=== PATIENT | male | born 1990 | race Caucasian/White ===

== ENCOUNTER 2018-09-30 02:34 | Inpatient (IN) ==
[2018-09-30] MEDS ORDERED: ONDANSETRON 4 MG/2 ML VIAL ONE ×3 (02:46→11:22)
[2018-09-30] MEDS ORDERED: DIPHTHERIA/TETANUS ADULT VACCINE 0.5 ML VIAL IM ONE (02:46)
[2018-09-30] MEDS ORDERED: ONDANSETRON 4 MG/2 ML VIAL IV STA ×2 (02:46→06:35)
[2018-09-30] MEDS ORDERED: HYDROmorphone 2 MG/1 ML VIAL ONE (02:46)
[2018-09-30] MEDS ORDERED: LACTATED RINGERS 1,000 ML IV STA (02:46)
[2018-09-30] MEDS ORDERED: HYDROmorphone 2 MG/1 ML VIAL IV STA ×2 (02:46→03:56)
[2018-09-30 03:51] LABS: Basophils # 0.1 10*3/uL (0.0-0.2); Basophils % 0.2 % (0.0-0.8); Eosinophils % 0.1 % (0.00-10.9); Hematocrit 34.2 VOL% (42.0-52.0); Hemoglobin 11.6 GM/DL (14.0-18.0); Immature Granulocytes % 1.4 %; Lymphocytes % 5.6 % (21.2-54.2); Mean Corpuscular HGB Conc 33.9 GM/DL (32-36); Mean Corpuscular Hemoglobin 30 PG (27-34); Mean Corpuscular Volume 89.1 FL (87-102); Mean Platelet Volume 9.1 FL (9.6-12.0); Monocytes # 2.4 10*3/uL (0.11-0.8); Monocytes % 6.7 % (1.7-12.7); Neutrophils # 30.8 10*3/uL (1.4-7.4); Platelet Count 253 T/CUMM (130-400); Red Blood Count 3.84 MC/CUMM (3.8-5.5); Red Cell Distribution Width 11.9 % (9.3-17.3); White Blood Count 35.9 T/CUMM (4-12)
[2018-09-30 03:59] LABS: Partial Thromboplastin Time 22.9 SECS (0-40)
[2018-09-30 04:14] LABS: Band Neutrophils 10 % (0-10); Lymphocytes 6 % (20-55); Metamyelocytes 1 %; Platelet Estimate Normal; Segmented Neutrophils 79 % (50-85); Total Cells Counted 100
[2018-09-30 04:16] LABS: Lactic Acid 3.3 MMOL/L (0.4-2.0)
[2018-09-30 04:17] LABS: Alanine Aminotransferase 74 U/L (16-61); Albumin 3.2 G/DL (3.4-5.0); Alkaline Phosphatase 76 U/L (45-117); Amylase 34 U/L (25-115); Aspartate Amino Transferase 71 U/L (0-37); Bilirubin,Total < 0.39 MG/DL (0.2-1.0); Blood Urea Nitrogen 13 MG/DL (7-18); Calcium 7.8 MG/DL (8.5-10.1); Glucose 113 MG/DL (74-106); Osmolality,Calculated 283.1 MOS/KG (273-304); Potassium 3.8 MMOL/L (3.5-5.1); Sodium 142 MMOL/L (136-145); Total Protein 5.8 G/DL (6.4-8.3)
[2018-09-30] MEDS ORDERED: PIPERACILLIN/TAZOBACTAM 3,375 MG in SODIUM CHLORIDE 0.9% 100 ML IV ONE (05:40)
[2018-09-30 05:59] LABS: Apearance,Urine CLEAR (Clear); Bilirubin,Urine Negative (Negative); Blood, Urine Moderate mg/dL (Negative); Glucose,Urine (UA) 50 mg/dL (Negative); Ketones,Urine Negative (Negative); Nitrite,Urine Negative (Negative); Protein,Urine 30 MG/DL; RBC,Urine 60 /HPF (0-4); Urine Color Straw (Yellow); Urine Specific Gravity 1.038 (1.001-1.035); Urine Urobilinogen < 2.0 EU/DL (0.2-1.0); WBC,Urine 3 /HPF (0-6)
[2018-09-30] MEDS ORDERED: SODIUM CHLORIDE 0.9% 1,000 ML IV STA (06:14)
[2018-09-30 06:19] LABS: Barbiturates Screen,Urine Negative (Negative); Benzodiazepines Screen,Urine Negative (Negative); Cannabinoid Screen,Urine Negative (Negative); Opiate Screen,Urine Positive (Negative); Phencyclidine Screen,Urine Negative (Negative)
[2018-09-30] MEDS ORDERED: ceFAZolin 1,000 MG in SYRINGE 1 EACH IV ONE (07:06)
[2018-09-30 08:01] LABS: Hematocrit 33.7 VOL% (42.0-52.0); Hemoglobin 11.4 GM/DL (14.0-18.0)
[2018-09-30] MEDS ORDERED: BACITRACIN OINT 0.9 GM PACK TOP ONE (08:50)
[2018-09-30] MEDS ORDERED: diphenhydrAMINE CAP 25 MG CAPSULE PO PRN (09:51)
[2018-09-30] MEDS ORDERED: NALOXONE 0.4 MG/ML VIAL IV PRN (09:51)
[2018-09-30 10:13] LABS: Apearance,Urine CLEAR (Clear); Bilirubin,Urine Negative (Negative); Blood, Urine Moderate mg/dL (Negative); Glucose,Urine (UA) 150 mg/dL (Negative); Ketones,Urine Negative (Negative); Mucus,Urine Occasional /LPF (Occasional); Nitrite,Urine Negative (Negative); Protein,Urine Negative; RBC,Urine 14 /HPF (0-4); Urine Color Straw (Yellow); Urine Specific Gravity 1.023 (1.001-1.035); Urine Urobilinogen < 2.0 EU/DL (0.2-1.0); WBC,Urine 1 /HPF (0-6)
[2018-09-30] MEDS ORDERED: MORPHINE PCA 30 MG/30 ML SYRINGE IV ONE (10:24)
[2018-09-30] MEDS: MORPHINE PCA 30 MG/30 ML SYRINGE IV SCH ×2 (10:28→20:53)
[2018-09-30] MEDS ORDERED: ONDANSETRON 4 MG/2 ML VIAL IV PRN (10:34)
[2018-09-30] MEDS: HYDROmorphone 2 MG/1 ML VIAL IV PRN ×5 (10:35→19:34)
[2018-09-30] MEDS ORDERED: PROPOFOL 200 MG/20 ML VIAL IV ONE (11:22)
[2018-09-30] MEDS ORDERED: LACTATED RINGERS 2,000 ML IV ONE (11:23)
[2018-09-30] MEDS ORDERED: SUCCINYLCHOLINE 200 MG/10 ML VIAL ONE (11:23)
[2018-09-30] MEDS ORDERED: SEVOFLURANE 1 UNIT/15 MINUTE INH ONE (11:23)
[2018-09-30] MEDS ORDERED: PHENYLEPHRINE 1 MG/10 ML SYRINGE IV ONE (11:23)
[2018-09-30] MEDS ORDERED: ROCURONIUM 100 MG/10 ML VIAL IV ONE (11:23)
[2018-09-30] MEDS ORDERED: LACTATED RINGERS 1,000 ML IV SCH (11:25)
[2018-09-30] MEDS ORDERED: SODIUM CHLORIDE 0.9% 1,000 ML IV PRN (11:25)
[2018-09-30] MEDS: LACTATED RINGERS 1,000 ML IV SCH ×3 (12:23→20:23)
[2018-09-30] MEDS: ceFAZolin 1,000 MG in SYRINGE 1 EACH IV SCH ×2 (14:06→21:15)
[2018-09-30] MEDS: DOCUSATE SODIUM 100 MG CAPSULE PO SCH (21:15)
[2018-10-01] MEDS ORDERED: ENOXAPARIN 40 MG/0.4 ML SYRINGE SUBCUT SCH (03:51)
[2018-10-01] MEDS: LACTATED RINGERS 1,000 ML IV SCH ×3 (04:20→10:13)
[2018-10-01 04:40] LABS: Basophils % 0.2 % (0.0-0.8); Eosinophils % 0.2 % (0.00-10.9); Hematocrit 23.8 VOL% (42.0-52.0); Immature Granulocytes % 0.5 %; Immature Granulocytes Absolute 0.06 #; Lymphocytes # 2.2 10*3/uL (1.4-4.0); Lymphocytes % 17.1 % (21.2-54.2); Mean Corpuscular HGB Conc 33.6 GM/DL (32-36); Mean Corpuscular Hemoglobin 30 PG (27-34); Mean Corpuscular Volume 89.8 FL (87-102); Monocytes # 1.4 10*3/uL (0.11-0.8); Monocytes % 11.3 % (1.7-12.7); Neutrophils # 9.1 10*3/uL (1.4-7.4); Neutrophils % 70.7 % (38.7-73.9); Platelet Count 176 T/CUMM (130-400); Red Blood Count 2.65 MC/CUMM (3.8-5.5); White Blood Count 12.8 T/CUMM (4-12)
[2018-10-01 05:08] LABS: Calcium 7.4 MG/DL (8.5-10.1); Osmolality,Calculated 275.7 MOS/KG (273-304); Potassium 3.8 MMOL/L (3.5-5.1)
[2018-10-01] MEDS: HYDROmorphone 2 MG/1 ML VIAL IV PRN (08:37)
[2018-10-01] MEDS: DOCUSATE SODIUM 100 MG CAPSULE PO SCH ×2 (08:37→20:12)
[2018-10-01] MEDS ORDERED: ACETAMINOPHEN 325 MG TABLET PO PRN (09:52)
[2018-10-01] MEDS: KETOROLAC 30 MG/1 ML VIAL IV SCH ×3 (10:48→22:05)
[2018-10-01] MEDS: MORPHINE PCA 30 MG/30 ML SYRINGE IV SCH (11:36)
[2018-10-02] MEDS: MORPHINE PCA 30 MG/30 ML SYRINGE IV SCH (00:28)
[2018-10-02] MEDS: KETOROLAC 30 MG/1 ML VIAL IV SCH ×4 (03:36→21:51)
[2018-10-02 04:54] LABS: Basophils % 0.2 % (0.0-0.8); Eosinophils # 0.2 10*3/uL (0.0-0.87); Eosinophils % 2.2 % (0.00-10.9); Hematocrit 19.3 VOL% (42.0-52.0); Hemoglobin 6.5 GM/DL (14.0-18.0); Immature Granulocytes % 0.6 %; Immature Granulocytes Absolute 0.05 #; Lymphocytes % 23.3 % (21.2-54.2); Mean Corpuscular HGB Conc 33.7 GM/DL (32-36); Mean Corpuscular Hemoglobin 30 PG (27-34); Mean Corpuscular Volume 88.5 FL (87-102); Mean Platelet Volume 9.7 FL (9.6-12.0); Monocytes # 0.7 10*3/uL (0.11-0.8); Monocytes % 8.3 % (1.7-12.7); Neutrophils # 5.7 10*3/uL (1.4-7.4); Neutrophils % 65.4 % (38.7-73.9); Platelet Count 137 T/CUMM (130-400); Red Blood Count 2.18 MC/CUMM (3.8-5.5); Red Cell Distribution Width 11.9 % (9.3-17.3); White Blood Count 8.7 T/CUMM (4-12)
[2018-10-02 05:06] LABS: Calcium 7.8 MG/DL (8.5-10.1); Osmolality,Calculated 278.4 MOS/KG (273-304); Potassium 3.5 MMOL/L (3.5-5.1)
[2018-10-02] MEDS ORDERED: SODIUM CHLORIDE 0.9% 1,000 ML IV PRN (06:25)
[2018-10-02] MEDS: DOCUSATE SODIUM 100 MG CAPSULE PO SCH ×2 (09:49→20:02)
[2018-10-02] MEDS: FONDAPARINUX 2.5 MG/0.5 ML SYRINGE SUBCUT SCH ×2 (09:49→09:54)
[2018-10-02] MEDS: ONDANSETRON 4 MG/2 ML VIAL IV PRN (09:52)
[2018-10-02] MEDS: MUPIROCIN 2% OINT 22 GM TUBE TOP SCH (12:30)
[2018-10-02] MEDS ORDERED: BACITRACIN OINT 0.9 GM PACK TOP SCH (12:30)
[2018-10-02] MEDS: HYDROmorphone 2 MG/1 ML VIAL IV PRN (13:48)
[2018-10-02 16:25] LABS: Hematocrit 21.1 VOL% (42.0-52.0); Hemoglobin 7.1 GM/DL (14.0-18.0)
[2018-10-03 04:49] LABS: Basophils % 0.1 % (0.0-0.8); Eosinophils # 0.2 10*3/uL (0.0-0.87); Eosinophils % 2.5 % (0.00-10.9); Hemoglobin 7.3 GM/DL (14.0-18.0); Immature Granulocytes % 0.8 %; Immature Granulocytes Absolute 0.07 #; Lymphocytes # 1.2 10*3/uL (1.4-4.0); Lymphocytes % 14.5 % (21.2-54.2); Mean Corpuscular HGB Conc 33.2 GM/DL (32-36); Mean Corpuscular Hemoglobin 30 PG (27-34); Mean Corpuscular Volume 89.4 FL (87-102); Mean Platelet Volume 9.5 FL (9.6-12.0); Monocytes # 0.6 10*3/uL (0.11-0.8); Monocytes % 6.7 % (1.7-12.7); Neutrophils # 6.5 10*3/uL (1.4-7.4); Neutrophils % 75.4 % (38.7-73.9); Platelet Count 150 T/CUMM (130-400); Red Blood Count 2.46 MC/CUMM (3.8-5.5); Red Cell Distribution Width 12.3 % (9.3-17.3); White Blood Count 8.6 T/CUMM (4-12)
[2018-10-03] MEDS: KETOROLAC 30 MG/1 ML VIAL IV SCH ×4 (05:42→21:38)
[2018-10-03] MEDS: MAGNESIUM HYDROXIDE SUSP 30 ML UDCUP PO PRN ×2 (05:46→17:17)
[2018-10-03] MEDS: DOCUSATE SODIUM 100 MG CAPSULE PO SCH ×2 (08:52→21:37)
[2018-10-03] MEDS: FONDAPARINUX 2.5 MG/0.5 ML SYRINGE SUBCUT SCH (08:52)
[2018-10-03] MEDS: MUPIROCIN 2% OINT 22 GM TUBE TOP SCH (08:52)
[2018-10-03] MEDS: ONDANSETRON 4 MG/2 ML VIAL IV PRN (15:23)
[2018-10-03 19:36] LABS: Hematocrit 26.5 VOL% (42.0-52.0)
[2018-10-03 19:43] LABS: Hemoglobin 9.1 GM/DL (14.0-18.0)
[2018-10-04] MEDS: KETOROLAC 30 MG/1 ML VIAL IV SCH ×4 (05:27→23:12)
[2018-10-04 06:14] LABS: Basophils % 0.2 % (0.0-0.8); Eosinophils # 0.6 10*3/uL (0.0-0.87); Eosinophils % 6.8 % (0.00-10.9); Hemoglobin 8.3 GM/DL (14.0-18.0); Immature Granulocytes % 1.5 %; Immature Granulocytes Absolute 0.12 #; Lymphocytes # 1.8 10*3/uL (1.4-4.0); Lymphocytes % 22.3 % (21.2-54.2); Mean Corpuscular HGB Conc 33.2 GM/DL (32-36); Mean Corpuscular Hemoglobin 30 PG (27-34); Mean Corpuscular Volume 89.6 FL (87-102); Monocytes # 0.7 10*3/uL (0.11-0.8); Monocytes % 8.4 % (1.7-12.7); NRBC # 0.02 10*3/uL; Neutrophils # 4.9 10*3/uL (1.4-7.4); Neutrophils % 60.8 % (38.7-73.9); Platelet Count 186 T/CUMM (130-400); Red Blood Count 2.79 MC/CUMM (3.8-5.5); Red Cell Distribution Width 12.5 % (9.3-17.3); White Blood Count 8.1 T/CUMM (4-12)
[2018-10-04 06:35] LABS: Calcium 8.4 MG/DL (8.5-10.1); Osmolality,Calculated 282.3 MOS/KG (273-304); Potassium 3.9 MMOL/L (3.5-5.1)
[2018-10-04] MEDS: FONDAPARINUX 2.5 MG/0.5 ML SYRINGE SUBCUT SCH (08:59)
[2018-10-04] MEDS: DOCUSATE SODIUM 100 MG CAPSULE PO SCH ×2 (09:58→20:31)
[2018-10-04] MEDS: MUPIROCIN 2% OINT 22 GM TUBE TOP SCH (17:30)
[2018-10-05] MEDS: MAGNESIUM HYDROXIDE SUSP 30 ML UDCUP PO PRN ×3 (04:40→21:33)
[2018-10-05] MEDS: KETOROLAC 30 MG/1 ML VIAL IV SCH ×4 (04:50→21:33)
[2018-10-05] MEDS: MUPIROCIN 2% OINT 22 GM TUBE TOP SCH (08:54)
[2018-10-05] MEDS: DOCUSATE SODIUM 100 MG CAPSULE PO SCH ×2 (08:54→21:33)
[2018-10-05] MEDS: FONDAPARINUX 2.5 MG/0.5 ML SYRINGE SUBCUT SCH (08:56)
[2018-10-05] MEDS: ONDANSETRON 4 MG/2 ML VIAL IV PRN (14:17)
[2018-10-06] MEDS: KETOROLAC 30 MG/1 ML VIAL IV SCH (03:47)
[2018-10-06] MEDS: FONDAPARINUX 2.5 MG/0.5 ML SYRINGE SUBCUT SCH (09:03)
[2018-10-06] MEDS: MUPIROCIN 2% OINT 22 GM TUBE TOP SCH (09:04)
[2018-10-06] MEDS: DOCUSATE SODIUM 100 MG CAPSULE PO SCH (09:04)
[2018-10-06 11:41] VITALS: BP 144/71
== END 2018-10-06 13:50 | disposition home or self-care (01) | DRG 956 ==
LOC: N.ED 02:34 → N.EDINP 06:21 → N.CC 06:44 → N.3E 10-01 12:20
PROVIDERS: ADMIT Surgery; ATTEND Surgery